=== PATIENT | female | born 1950 | race Caucasian/White ===

== ENCOUNTER 2016-11-29 21:43 | Observation (INO) | payer OTHER ==
[2016-11-29] MEDS ORDERED: NS 1,000 ML IV ONE (21:59)
[2016-11-29] MEDS ORDERED: ASPIRIN 81 MG CHEWABLE TAB PO ONE (21:59)
--- NOTE | 2016-11-29 22:02 | CPEKG ---
Heart Rate: 76 RR Interval: 789 P-R Interval: 212 QRSD Interval: 94 QT Interval: 384 QTC Interval: 432 P [place]: 25 QRS [place]: 27 T Wave [place]: -33 EKG Severity - ABNORMAL ECG - EKG Impression: SINUS RHYTHM EKG Impression: VENTRICULAR PREMATURE COMPLEX EKG Impression: NONSPECIFIC T ABNORMALITIES, INFERIOR LEADS Electronically Signed By: Josh Prado 30-Nov-2016 06:50:16
[2016-11-29 22:06] LABS: % IMMATURE GRANULYOCYTES 0.2 % (0.0-1.1); ABSOLUTE IMMATURE GRANULOCYTES 0.01 10^3/uL (0.00-0.10); ADD DIFF? NO; ADD MORPH? NO; ADD SCAN? NO; ATYPICAL LYMPHOCYTE FLAG 30 (0-99); FRAGMENT RBC FLAG 0 (0-99); HEMATOCRIT 41.4 % (38.0-47.0); HEMOGLOBIN 13.7 g/dL (12.6-16.3); LEFT SHIFT FLG 0 (0-99); LIPEMIA HEMOLYSIS FLAG 80 (0-99); MEAN CELL HEMOGLOBIN CONCENTR. 33.1 g/dL (32.4-36.7); MEAN CELL VOLUME 84.5 fL (81.5-99.8); PLATELET CLUMPS FLAG 0 (0-99); PLATELET COUNT 168 10^3/uL (150-400); RED CELL DISTRIBUTION WIDTH 14.5 % (11.5-15.2)
[2016-11-29] MEDS ORDERED: NITROGLYCERIN 0.4 MG BTL SL ONE (22:14)
[2016-11-29 22:19] LABS: INR 1.15 (0.83-1.16); PROTIME(PATIENT) 14.6 SEC (12.0-15.0)
--- NOTE | 2016-11-29 22:20 | EDPHY ---
H & P Stated Complaint: AWOKE 0200, TIGHTNESS ACROSS CHEST AND BACK, FATIGUED SOB THIS EVENING HPI/ROS: HPI CHIEF COMPLAINT: Chest pain, back pain. HISTORY OF PRESENT ILLNESS: This patient is 66-year-old female, significant past medical history for multiple arthritic surgeries, otherwise healthy, presents to the emergency room with chest discomfort she describes a pressure in the center of her chest that radiates intrascapular lead to her back. She also endorses fatigue. She states this started around 2:00 a.m.. Ever since 2: 00 a.m. it has been intermittent on and off however got poor sleep last night. 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 And then profound fatigue that started around 5:00 p.m. this evening. Describes the pain as a pressure pain. Currently active here in the emergency room. Past Medical History: No significant medical history except for high calcium which she takes HCTZ for. Past Surgical History: Multiple orthopedic surgeries including bilateral knees Social History: Denies daily use of drugs alcohol tobacco products Family History: Elderly parents had vascular disease [place] at age 80 in the father. ROS REVIEW OF SYSTEMS: A comprehensive 10 point review of systems is otherwise negative aside from elements mentioned in the history of present illness. Exam Constitutional appears well nontoxic triage nursing summary reviewed, vital signs reviewed, awake/alert. Eyes normal conjunctivae and sclera, EOMI, PERRLA. HENT normal inspection, atraumatic, moist mucus membranes, no epistaxis, neck supple/ no meningismus, no raccoon eyes. Respiratory clear to auscultation bilaterally, normal breath sounds, no respiratory distress, no wheezing. Cardiovascular rate normal, regular rhythm, no murmur, no edema, distal pulses normal. Gastrointestinal soft, non-tender, no rebound, no guarding, normal bowel sounds, no distension, no pulsatile mass. Genitourinary no CVA tenderness. Musculoskeletal no midline vertebral tenderness, full range of motion, no calf swelling, no tenderness of extremities, no meningismus, good pulses, neurovascularly intact. Skin pink, warm, & dry, no rash, skin atraumatic. Neurologic awake, alert and oriented x 3, AAOx3, moves all 4 extremities equally, motor intact, sensory intact, CN II-XII intact, normal cerebellar, normal vision, normal speech. Psychiatric normal mood/affect. Heme/Lymph/Immune no lymphadenopathy. Differential diagnosis includes but is not limited to: ACS, atypical chest pain , pneumothorax, pneumonia, pulmonary embolism, aortic dissection, congestive heart failure, tumor, musculoskeletal pain, esophageal pain, GERD, peptic ulcer disease, pancreatitis Medical Decision Making: Plan for this patient full surveillance monitor, IV establishment, full-dose aspirin, nitroglycerin, chest x-ray, D-dimer close re- evaluation. EKG. Rule out acute coronary syndrome. Re-evaluation: EKG interpretation by me on record in [employer] ([email or web address]) system. Impression time of EKG 2199, this is sinus rhythm rate of 76 MD interval noted to be 212. Nonspecific T-wave abnormality in inferior leads specifically 3 and AVF. PVC present. However when I compare this EKG to EKG dated 02/26/2015 it is similar morphology. EKG interpretation by me on record in [employer] system. Impression time of EKG 2311, this is a repeat EKG, sinus rhythm rate of 66, T-wave abnormality appreciated again in lead 3 AVF. Unchanged from previous EKG. CT scan of the ANGIOGRAM CHEST. The results of the study are NEGATIVE FOR PULMONARY EMBOLISM, NORMAL AORTA. The study was read by Dr. Prieto I viewed the images myself on the PACS system. 2352: Due the patient's presentation of chest discomfort radiating to her back , and severe fatigue in a 66-year-old female with T-wave inversions in inferior leads I feel that this patient needs to be admitted to the hospital for further cardiac evaluation and rule out. I will admitted to the hospitalist service the patient is fine with this plan. Source: Patient - Personal History Current Tetanus/Diphtheria Vaccine: Unsure - Medical/Surgical History Hx Asthma: No Hx Chronic Respiratory Disease: No Hx Diabetes: No Hx Cardiac Disease: No Hx Renal Disease: No Hx Cirrhosis: No Hx Alcoholism: No Hx HIV/AIDS: No Hx Splenectomy or Spleen Trauma: No Other PMH: L4-L5 disc surgery, TOTAL KNEE,PLANTAR FACIITIS,CATARACT, HERNIA,FX LEFT PATELLA, LEFT FEMER, LEFT TIBIAL PLATEAU FX, FX LEFT PATELLA - Social History Smoking Status: Never smoked Constitutional: Initial Vital Signs Temperature (C) 36.5 C 11/29/16 21:46 Heart Rate 83 11/29/16 21:46 Respiratory Rate 20 11/29/16 21:46 Blood Pressure 152/83 H 11/29/16 21:46 O2 Sat (%) 93 11/29/16 21:46 O2 Delivery Mode Room Air Allergies/Adverse Reactions: metoclopramide [Metoclopramide] Allergy (Mild, Verified 11/29/16 23:20) Other-Enter Comments Home Medications: Medication Instructions Recorded Calcium Carbonate [Oyster Shell 500 mg PO HS 03/13/13 Calcium 500 mg (*)] Hydrochlorothiazide [HCTZ (*)] 12.5 mg PO DAILY 03/13/13 Herbals/Supplements -Info Only 1 ea PO DAILY 10/05/15 Pregabalin [Lyrica 75mg (*)] 150 mg PO BID 10/05/15 Multivitamins [Multivitamin (*)] 1 each PO DAILY 11/29/16 Pantoprazole Sodium [Protonix 40mg 40 mg PO DAILY #30 tab 11/30/16 (*)] Medical Decision Making - Data Points Laboratory Results: Laboratory Results 11/29/16 21:58 11/29/16 21:58 Medications Given: Discontinued Medications Acetaminophen (Tylenol) 650 mg PO Q4HRS PRN PRN Reason: Pain, Mild/Fever, Can Take PO Stop: 05/29/17 00:26 Last Admin: 11/30/16 08:31 Dose: 650 mg Al Hydroxide/Mg Hydroxide (Maalox Susp) 30 ml PO Q4HRS PRN PRN Reason: Indigestion Stop: 05/29/17 01:34 Last Admin: 11/30/16 04:13 Dose: 30 ml Aspirin (Aspirin) 324 mg PO EDNOW ONE Stop: 11/29/16 22:00 Last Admin: 11/29/16 22:19 Dose: 324 mg Enoxaparin Sodium (Lovenox) 40 mg SC DAILY CRISTAL Stop: 05/29/17 08:59 Last Admin: 11/30/16 08:32 Dose: 40 mg Sodium Chloride (Ns) 1,000 mls @ 0 mls/hr IV ONCE ONE; Wide Open PRN Reason: Protocol Stop: 11/29/16 22:00 Last Admin: 11/29/16 22:20 Dose: 1,000 mls Lidocaine (Lidocaine 2% Viscous) 5 ml PO ONCE ONE Stop: 11/30/16 01:37 Last Admin: 11/30/16 04:12 Dose: 5 ml Lidocaine (Lidocaine 2% Viscous) 5 ml PO ONCE ONE Stop: 11/30/16 04:31 Last Admin: 11/30/16 05:12 Dose: Not Given Nitroglycerin (Nitrostat) 0.4 mg SL EDNOW ONE Stop: 11/29/16 22:15 Last Admin: 11/30/16 00:51 Dose: Not Given Nitroglycerin (Nitrostat) 0.4 mg SL Q5M PRN PRN Reason: Chest Pain Stop: 05/29/17 00:31 Last Admin: 11/30/16 01:52 Dose: 1 tab Pregabalin (Lyrica) 75 mg PO BID CRISTAL Stop: 05/29/17 08:59 Last Admin: 11/30/16 08:31 Dose: 75 mg Departure - Departure Disposition: [facility] Inpatient Acute Clinical Impression: Chest pain Qualifiers: Chest pain type: unspecified Qualified Code(s): R07.9 - Chest pain, unspecified Condition: Fair
[2016-11-29 22:23] LABS: ALANINE AMINOTRANSFERASE 44 IU/L (9-52); ALKALINE PHOSPHATASE 98 IU/L (38-126); ANION GAP 10 mEq/L (8-16); ASPARTATE AMINOTRANSFERASE 42 IU/L (14-46); BILIRUBIN,TOTAL 0.5 mg/dL (0.1-1.4); BILIRUBIN-CONJUGATED 0.2 mg/dL (0.0-0.5); BILIRUBIN-UNCONJUGATED 0.3 mg/dL (0.0-1.1); CALCIUM 10.3 mg/dL (8.5-10.4); CARBON DIOXIDE 22 mEq/l (22-31); CHLORIDE 110 mEq/L (97-110); GLOMERULAR FILTRATION RATE 55; GLUCOSE 111 mg/dL (70-100); POTASSIUM 3.9 mEq/L (3.5-5.2); SODIUM 142 mEq/L (134-144); TOTAL PROTEIN 6.9 g/dL (6.3-8.2)
[2016-11-29 22:34] LABS: CK-MB INTERPRETATION NEGATIVE (NEGATIVE); TROPONIN I < 0.012 ng/mL (0-0.034)
[2016-11-29 22:36] LABS: CREATINE KINASE-MB FRACTION 4.43 ng/mL (0-3.19)
--- NOTE | 2016-11-29 23:14 | CPEKG ---
Heart Rate: 66 RR Interval: 909 P-R Interval: 208 QRSD Interval: 96 QT Interval: 412 QTC Interval: 432 P [place]: 34 QRS [place]: 35 T Wave [place]: -20 EKG Severity - BORDERLINE ECG - EKG Impression: SINUS RHYTHM EKG Impression: BORDERLINE T ABNORMALITIES, INFERIOR LEADS Electronically Signed By: Josh Prado 30-Nov-2016 06:50:16
[2016-11-29] MEDS ORDERED: IOPAMIDOL (ISOVUE 370) 100 ML BTL IV ONE (23:22)
[2016-11-30] MEDS ORDERED: ONDANSETRON 4 MG/2 ML VIAL IVP PRN (00:27)
[2016-11-30] MEDS ORDERED: ONDANSETRON DISINTEGRATING 4 MG TAB PO PRN (00:27)
[2016-11-30] MEDS ORDERED: NITROGLYCERIN 0.4 MG BTL SL PRN (00:32)
[2016-11-30] MEDS ORDERED: MAG HYDROX/AL HYDROX/SIMETH 30 ML UDCUP PO PRN (01:35)
[2016-11-30] MEDS ORDERED: LIDOCAINE 2% VISCOUS 15 ML UDCUP PO ONE ×2 (01:36→04:30)
[2016-11-30] MEDS: ACETAMINOPHEN 325 MG TAB PO PRN ×2 (02:04→08:31)
--- NOTE | 2016-11-30 03:12 | GHP ---
[f rep st] HISTORY AND PHYSICAL DATE OF ADMISSION: 11/30/2016 CHIEF COMPLAINT: Chest pain. HISTORY OF PRESENT ILLNESS: Patient is a 66-year-old female with history of multiple orthopedic surgeries, chronic pain, presenting with chest pain. She awoke this morning at 2 a.m. and felt substernal pressure that radiated to the middle of her back. She got up, had a glass of milk, and went back to bed. 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 It was not worsened by exertion. She did not have associated shortness of breath, numbness, diaphoresis. After working the field, she swam in a [place] and felt very tired. 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 She has been irrigating the stuart over the summer without any similar episodes. She thinks she has been staying hydrated, drinking water and Gatorade. She has chronic pain in knees, Achilles, and her back. This takes at least 3-4 Advil a day plus 2 Aleve. REVIEW OF SYSTEMS: I completed a 10-point review of systems, negative except as noted in HPI. PAST MEDICAL HISTORY: 1. History of osteoporosis. 2. Hypercalcemia. 3. Neuropathic pain. PAST SURGICAL HISTORY: Right TKA 09/2015. Other multiple orthopedic surgeries secondary to injuries. FAMILY HISTORY: Father had OK at age 80, TIAs. Mother with a stroke. SOCIAL HISTORY: Her farm [place]. Denies tobacco. Occasional alcohol. No illicits. MEDICATIONS: See medication reconciliation. PHYSICAL EXAMINATION: VITAL SIGNS: Temperature 36.4, blood pressure 147/94, heart rate is in the 70s, respirations 18, 96% on room air. GENERAL: Patient is well appearing, lying in bed, in no acute distress. HEENT: PERRLA. EOMI. Oropharynx clear. CV: Regular rate and rhythm. No murmurs, gallops, or rubs. No reproducible chest pain. LUNGS: Clear to auscultation bilaterally. No crackles or wheezes. No lower extremity edema. ABDOMEN: Soft, nontender, nondistended. Positive bowel sounds. : No suprapubic tenderness. MUSCULOSKELETAL: 5/5 upper and lower extremity strength. NEURO: 2 through 12 intact. PSYCH: Alert oriented x3. LABORATORY DATA: WBC is 6, hemoglobin 13, hematocrit 41, platelets 168. PT is 14. INR 1. D-dimer is 0.69. Sodium 146, potassium 3.9, chloride 110, carbon dioxide 22, BUN 24, creatinine is 1 with a baseline of 0.7. Magnesium is 2. CK is 266. Troponin is less than 0.012. BNP is 1.7. Lipase 138. IMAGING DATA: 1. Chest CTA: Negative CT for PE or dissection. 2. Chest x-ray: Personally reviewed by me, no evidence of effusion or opacity. 3. EKG: Personally reviewed by me normal sinus rhythm, borderline T-wave abnormalities in inferior leads, which is seen on prior. ASSESSMENT AND PLAN: 1. Atypical chest pain: Differential includes acute coronary syndrome versus pulmonary embolism versus gastroesophageal reflux disease versus musculoskeletal. Symptoms not typical for acute coronary syndrome as it does not change with exertion. No associated symptoms. She does have family history of cardiac disease. Initial troponin and EKG were negative for ischemia. Will repeat both of these, monitor on telemetry. Will trial a GI cocktail given high-dose NSAIDs that she uses. 2. Neuropathic pain: Resume Lyrica. 3. Chronic pain: I had a long conversation as far as caution with NSAIDs. She may trial Tylenol. Also suggest a Lidoderm patch. She asked me about an opioid, and I stressed concern of long-term use of these medications and that she should follow up with her primary care physician. 4. Mild MAGGIE: Cr 1, BL 0.7. Suspect due to dehydration and chronic NSAIDs 5. Diet: Regular. 6. Deep vein thrombosis prophylaxis: Low risk. DISPOSITION: Patient warrants observation admission given acute chest pain warranting serial troponins, EKG, and telemetry. /[id number]/MODL MTDD
[2016-11-30] MEDS ORDERED: LIDOCAINE 2% VISCOUS 15 ML UDCUP ONE (04:09)
--- NOTE | 2016-11-30 04:46 | CPEKG ---
Heart Rate: 60 RR Interval: 1000 P-R Interval: 212 QRSD Interval: 88 QT Interval: 372 QTC Interval: 372 P [place]: 33 QRS [place]: 51 T Wave [place]: -35 EKG Severity - BORDERLINE ECG - EKG Impression: SINUS RHYTHM EKG Impression: BORDERLINE T ABNORMALITIES, DIFFUSE LEADS Electronically Signed By: Josh Prado 30-Nov-2016 06:50:16
[2016-11-30 07:45] VITALS: BP 124/77; PULSE 72; RESP 16; TEMP 97.4; O2SAT 95
[2016-11-30] MEDS ORDERED: ENOXAPARIN 40 MG/0.4 ML SYR SC SCH (09:00)
[2016-11-30] MEDS ORDERED: PREGABALIN 75 MG CAP PO SCH (09:00)
[2016-11-30] MEDS ORDERED: REGADENOSON 0.4 MG/5 ML SYR IVP ONE (10:42)
--- NOTE | 2016-11-30 12:18 | CPR ---
[f rep st] NONINVASIVE CARDIAC PROCEDURE REPORT DATE OF PROCEDURE: 11/30/2016 PROCEDURE PERFORMED: Nuclear Lexiscan stress test that started out as a treadmill stress test. PRETEST VITAL SIGNS: Resting EKG shows a regular sinus rhythm. No ischemic changes are noted. Resting blood pressure 140/84, heart rate 69, oxygen saturation 97%. NUCLEAR PORTION: The test was started on the treadmill according to the Arthur protocol. After getting into stage 3, her heart rate was slowly elevating. Due to her bad knees, she could not continue. This portion was stopped and she was switched to a Lexiscan stress test. STRESS PORTION: Lexiscan was injected rapidly followed by saline flush. Cardiolite was then injected, followed by a saline flush. She did experience nausea and a weak feeling. Her EKG did show an occasional PVC. No other arrhythmias were noted. No other EKG changes were noted. Her exercise heart rate peak was 96, blood [id number],peaking at 150/84. RECOVERY: She spontaneously recovered her blood pressure and her heart rate came back down to pre-exercise baseline. She was given caffeine which helped her symptoms subside. At this time, she currently is stable for nuclear imaging. /[id number]/MODL MTDD
--- NOTE | 2016-11-30 14:20 | HOSPPROG ---
Hospitalist Progress Note Assessment/Plan: 66 yo f w cp, neg eval home today see dc summary Subjective: no events tele Objective: Vital Signs Temp Pulse Resp BP Pulse Ox 36.3 C 72 16 124/77 H 95 11/30/16 07:44 11/30/16 07:44 11/30/16 07:44 11/30/16 07:44 11/30/16 07:44 11/29/16 11/30/16 12/01/16 05:59 05:59 05:59 Intake Total 1200 Balance 1200 PT 14.6 SEC (12.0-15.0) 11/29/16 21:58 INR 1.15 (0.83-1.16) 11/29/16 21:58 - Physical Exam Constitutional: no apparent distress, appears nourished Eyes: PERRL, anicteric sclera Ears, Nose, Mouth, Throat: moist mucous membranes, hearing normal Cardiovascular: regular rate and rhythym, no murmur, rub, or gallop, No systolic murmur Respiratory: no respiratory distress, no rales or rhonchi Gastrointestinal: normoactive bowel sounds Genitourinary: no bladder fullness, No tamez in urethra Skin: warm, normal color ICD10 Worksheet Patient Problems: Problems Problem Status Onset Chest pain Acute Dizziness Acute Osteoarthritis of right knee Acute
--- NOTE | 2016-11-30 17:05 | GDS ---
[f rep st] DISCHARGE SUMMARY DISCHARGE DIAGNOSES: 1. Chest pain with negative workup. 2. Heavy non-steroidal anti-inflammatory drug use. 3. Musculoskeletal pain, felt secondary to degenerative arthritis. 4. History of osteoporosis. 5. Hypercalcemia. HOSPITAL COURSE: Please see admission history and physical by Dr. Lisa Chavez. The patient pres ented in the evening with chest pain, radiating between her shoulder blades. She had a positive D-d maribel, negative CTA of her chest for significant aortic pathology or acute PE. She had serial negati ve troponins and a negative cardiac stress test. The patient endorses taking ibuprofen and Aleve during the day because of musculoskeletal pain. Thi s is felt consistent with possible reflux. She had no evidence of GI bleeding including no melena, no hematemesis, and she is not anemic. She is not tachycardic. Denied nausea. She is discharged h ome with a PPI and advised to limit her NSAIDs to 1, and take it no more than the maximal recommende d doses. /[id number]/MODL
== END 2016-11-30 15:08 | disposition home or self-care (01) ==
LOC: F2W 11-30 01:02
PROVIDERS: ADMIT Internal Medicine; ATTEND Internal Medicine
DX: R07.9 Chest pain, unspecified (principal); N17.9 Acute kidney failure, unspecified; G62.9 Polyneuropathy, unspecified; M19.90 Unspecified osteoarthritis, unspecified site; E83.52 Hypercalcemia; Z79.1 Long term (current) use of non-steroidal anti-inflammatories (NSAID); Z87.81 Personal history of (healed) traumatic fracture
CPT/HCPCS: 71010; 71275; 78452; 93005; 93017; 96360; 99285; A9500; G0378; J1650; J2785; Q9967

== ENCOUNTER → 2016-12-18 | Outpatient (CLI) | payer OTHER | LOC: BMCIMAGING 15:20 | PROVIDERS: ATTEND Internal Medicine | DX: Z13.820 Encounter for screening for osteoporosis (principal); M81.0 Age-related osteoporosis without current pathological fracture ==

== ENCOUNTER 2018-05-27 15:46 | Emergency (ER) | payer OTHER ==
[2018-05-27] MEDS ORDERED: ONDANSETRON DISINTEGRATING 4 MG TAB PO ONE ×2 (16:26)
--- NOTE | 2018-05-27 16:33 | EDPHY ---
General - History Smoking Status: Never smoked Time Seen by Provider: 05/27/18 16:13 Narrative: CLINICAL IMPRESSION: Postop left knee pain and swelling ASSESSMENT/PLAN: 67 yo very pleasant female presents to the emergency department 5 days postop left total knee replacement by Dr. Castro with concerns of increased left knee pain, swelling and warmth noted today. This is associated with a generalized feeling of malaise and mild nausea. No reported documented fever, chills, rigors, vomiting, red streaks up the leg. Patient does have notable left knee edema and joint effusion with no lymphangitis. She had does have mild erythema of the knee. Wound dressing was not removed. No obvious discharge around the borders of the wound dressing. Ultrasound negative for DVT. Vital signs stable , no tachycardia or fever. Patient does not appear toxic or septic. I discussed with Graciela MCCLAIN on-call for Dr. Castro. Patient was also seen examined by Dr. Marte. On-call orthopedics has recommended Micheal hose 18/12, elevation above the level heart, increased oxycodone to 2 tablets if needed, and she will plan to contact Dr. Castro to inquire about moving up patient's postop appointment currently scheduled for the . These recommendations were discussed with the patient and she is comfortable with discharge. Low threshold for return to ED sooner as outlined in person and discharge papers. DIFFERENTIAL DX: Differential includes but not limited to postop pain, DVT, septic joint, postop infection ED COURSE: 5:40 p.m. ultrasounds also discussed with Radiology, no evidence of DVT. Soft tissue edema noted. Patient seen and examined by Dr. Marte as well. Knee joint is warm and slightly erythematous. Vital signs stable. Afebrile. Will page Ortho to consult. CHIEF COMPLAINT: Left knee swelling HPI: 67-year-old very pleasant female presents to the emergency department 5 days postop left total knee replacement by Dr. Castro with complaints of increased left knee swelling today accompanied by a feeling of malaise. She also endorses mild nausea. No vomiting, fever, chills, rigors, palpitations or increased pain. She has been taking her pain medications as prescribed. She has been elevating her leg all day but despite this her swelling has persisted. She is not currently on antibiotics. Her primary care called her today to check in and she reported how she was feeling. She contacted her Orthopedics office and was told to come to the ER because they were closing in 5 min. She denies any kind of trauma or fall. She was supposed to have her initial physical therapy appointment today, but states that she was"so out of it"that she forgot about the appointment. No history of DVT. She is taking aspirin but is not on other anticoagulation therapy. PAST MEDICAL HISTORY: Prior orthopedic injuries Pertinent Past Surgical History: Multiple orthopedic surgeries primarily to left knee and leg Social History: , lives with her REVIEW OF SYSTEMS: All other systems negative except for those mentioned above Constitutional: No fever, no chills positive for malaise, decreased energy Musculoskeletal: No deformity, + joint pain, positive joint swelling Skin: No rashes, color change or open wounds. Neurological: No sensory loss or weakness. PHYSICAL EXAM: General Appearance: Alert, oriented, appropriate for age, cooperative, NAD, well hydrated, non-toxic appearing, VSS, no hypoxia. Neurological: Alert and oriented x 3 Skin: Left knee with dressing in place. Postoperative bruising noted. There is palpable warmth to the knee which patient reports is new. Mild erythema to knee and contusions noted. Musculoskeletal: Swelling noted to left leg from knee to ankle. Mild pain to palpation of left calf. Posterior tibialis and pedal pulses intact. Distal sensation intact. No obvious discharge or draining from beneath patient's dressing. no lymphangitis. MEDICAL DECISION MAKING: Patient was seen independently. Secondary supervising physician at time of evaluation was Dr. Marte. Diagnosis: Postop left knee pain and swelling. New, requires workup Summary: See assessment and plan for summary of ED visit Independent visualization of images, tracing, or specimens yes. Decision to obtain medical records or history from someone other than the patient: No Discussed patient with another provider: Dr. Marte Patient Progress: stable . (Jose Mendez) I have evaluated and participated in the management of this patient. My co- signature indicates that I have reviewed this chart and that I agree with the findings and the plan of care as documented. My personal history and physical findings include: Postop day 5. Status post left total knee replacement concerned with increased left knee swelling and pain. No fever. She has not been elevating her leg as much as recommended. Left knee with surgical dressing in place. The knee is swollen, mildly erythematous anteriorly, and warm to the touch. 2+ left dorsalis pedis pulse. Left calf soft, nontender. I doubt postoperative infection at this point in time. I suspect that she needs to increase her time in the support hose and elevate leg. Will consult with Dr. Castro. (Berenice Marte) - Diagnostics Imaging Results: Imaging Impressions Extremity Venous Study 05/27/18 16:26 Impression: Negative. No deep venous thrombosis. Findings discussed with Emergency Department physician scheduling assistant, Jose Mendez at 05/27/2018 17:16. - Objective Vital Signs: Initial Vital Signs Temperature (C) 37 C 05/27/18 15:53 Heart Rate 76 05/27/18 15:53 Respiratory Rate 16 05/27/18 15:53 Blood Pressure 158/84 H 05/27/18 15:53 O2 Sat (%) 95 05/27/18 15:53 O2 Delivery Mode Room Air Allergies/Adverse Reactions: metoclopramide [Metoclopramide] Allergy (Mild, Verified 05/27/18 15:51) Other-Enter Comments Home Medications: Medication Instructions Recorded Hydrochlorothiazide [HCTZ (*)] 12.5 mg PO DAILY 03/13/13 Pregabalin [Lyrica 75mg (*)] 150 mg PO BID 10/05/15 Aspirin 05/27/18 Meloxicam 05/27/18 Oxycodone HCl 05/27/18 Medications Given: Discontinued Medications Ondansetron HCl (Zofran Odt) 4 mg PO EDNOW ONE Stop: 05/27/18 16:27 Last Admin: 05/27/18 16:27 Dose: 4 mg Ondansetron HCl (Zofran Odt) 4 mg PO EDNOW ONE Stop: 05/27/18 16:27 Last Admin: 05/27/18 16:28 Dose: Not Given Departure - Departure Disposition: Home, Routine, Self-Care Clinical Impression: Postoperative pain of knee Condition: Good Instructions: Knee Pain (ED), Swollen Joint (ED) Additional Instructions: DISCHARGE INSTRUCTIONS FROM YOUR DOCTOR Thank you for visiting our emergency department today. Please keep in mind that discharge from the emergency department does not mean that there is nothing wrong - it simply means that we have not identified an emergency condition that requires further evaluation or treatment in the hospital. You should always plan to follow up with primary care for re-evaluation of your condition in the next 2-3 days. If you have been referred to a specialist, please call as soon as possible (today or tomorrow) to schedule your follow up appointment at the appropriate time. THE ULTRASOUND OF HER LEFT LEG WAS NEGATIVE FOR DEEP VEIN THROMBOSIS. VITAL SIGNS IN THE ED WERE STABLE, NO FEVER OR TACHYCARDIA. YOU WERE ALSO SEEN AND EXAMINED BY OUR ED ATTENDING DR. MARTE. WE DISCUSSED YOUR CASE WITH GRACIELA MCCLAIN WHO WAS SHANK TAPPER FOR YOUR ORTHO CLINIC. SHE RECOMMENDED WEARING TET HOSE 24 HOURS A DAY, ELEVATE ABOVE THE LEVEL OF YOUR HEART AND YOU CAN USE 2 TABS OF OXYCODONE IF NEEDED FOR INCREASED PAIN. DO NOT MIX TRAMADOL WITH OXYCODONE. IT IS OK TO CONTINUE TYLENOL. SHE WILL ALERT DR. CASTRO OF YOUR ER VISIT AND IF THEY WOULD LIKE TO SEE YOU SOONER, THEY WILL CALL. PLEASE TAKE PICTURES OF YOUR LEG TO MONITOR PROGRESS. PLEASE RETURN TO THE ED FOR INCREASED KNEE OR LEG SWELLING, DEVELOPMENT OF FEVERS GREATER THAN 100.4, NAUSEA OR VOMITING, ELEVATED HEART RATE, RED STREAKS GOING UP OR DOWN THE LEG, INCREASED REDNESS AROUND THE KNEE, OR ANY OTHER CONCERNS. People present with illnesses and injuries in different ways, and it is always possible that we have missed something. You may always return for re-evaluation if symptoms worsen or if they are not improving or if you develop new/different symptoms. Again, thank you for choosing our emergency department. We hope that you feel better. Referrals: Lore Beebe MD [Primary Care Provider] - As per Instructions Kolton Castro MD [Medical Doctor] - As per Instructions
[2018-05-27 18:28] VITALS: BP 154/84
== END 2018-05-27 18:27 | disposition home or self-care (01) ==
DX: G89.18 Other acute postprocedural pain (principal); M25.562 Pain in left knee; M79.89 Other specified soft tissue disorders